=== PATIENT | male | born 1990 | race Caucasian/White ===

== ENCOUNTER 2016-05-10 23:26 | Emergency (ER) | payer SELFPAY ==
[~2016-05-10] VITALS: Wt 98.2 kg
[~2016-05-10 23:26] MED LIST: LORA1TAB PO
[2016-05-11] MEDS ORDERED: LORA-441 PO (01:40)
--- NOTE | 2016-05-11 01:46 | ERD ---
ER Documentation Chief Complaint Date/Time DATE: 05/11/16 TIME: 01:43 Chief Complaint panic attacks x3 wks, increasing in severity HPI This is a 25-year-old male presents to the ER for increased anxiety attacks. Patient has had anxiety attacks almost every day for the last month and a half. Patient states that he gets stressed out over anything and appears for his life. Patient states that he starts getting palpitations he has had decreased appetite and he gets nauseous, shortness of breath and facial flushing. Patient states he used to be an alcoholic and stopped drinking in January, he is now worried that this may have caused his problems. In October he was also going through some depression and he had to ecstasy pills, patient believes that this affected him as well. Patient denies any chest pain or shortness of breath at this time. He denies any palpitations at this time. She denies any fevers or chills. Patient states that today he was stuck in traffic and that he felt like he was going to pass out and since then he has been very emotional. She denies any drug use. He drinks alcohol about once a week. ROS 12 point review of systems was done, all negative except per HPI.. Medications Home Meds Active Scripts Lorazepam* (Ativan*) 0.5 Mg Tablet, 0.5 MG PO Q8H Y for ANXIETY, #10 TAB Prov:SAMPSON MIRZA 05/11/16 Lorazepam* (Lorazepam*) 1 Mg Tablet, 1 MG PO Q8, #10 TAB Prov:KRISTIN HUNTER DO 11/08/15 Allergies Allergies: Coded Allergies: No Known Allergy (Unverified , 11/08/15) PMhx/Soc Hx Alcohol Use: Yes Hx Substance Use: No Physical Exam Vitals Vital Signs Date Time Temp Pulse Resp B/P Pulse Ox O2 Delivery O2 Flow Rate FiO2 05/10/16 23:31 98.0 99 20 144/97 100 Physical Exam GENERAL: The patient is well developed and appropriate for usual state of health , in no apparent distress. HEENT: Atraumatic. Conjunctivae are pink. Pupils equal, round, and reactive to light. Extraocular muscles are grossly intact. Bilateral tympanic membranes are clear with no evidence of erythema, effusion or dulling of the light reflex. The oropharynx is clear with no erythema or exudates. NECK: C-spine is soft and supple. There is no cervical lymphadenopathy. CHEST: Clear to auscultation bilaterally. There are no rales, wheezes or rhonchi. HEART: Regular rate and rhythm. No murmurs, clicks, rubs or gallops. ABDOMEN: Soft, nontender and nondistended. Good bowel sounds. No rebound or guarding. No gross peritonitis. No gross organomegaly or masses. No Walker sign or McBurney point tenderness. No pulsatile masses. BACK: No midline or flank tenderness. EXTREMITIES: Equal pulses bilaterally. There is no peripheral clubbing, cyanosis or edema. No focal swelling or erythema. Full range of motion. Grossly neurovascularly intact. NEURO: Alert and oriented. Cranial nerves II through XII are intact. Motor strength in all 4 extremities with 5/5 strength. Sensation grossly intact. Normal speech and gait. SKIN: There is no apparent rash or petechia. The skin is warm and dry. Results 24 hrs Current Medications Medications (Trade) Dose Ordered Sig/Gisela Route PRN Reason Start Time Stop Time Status Last Admin Dose Admin Lorazepam (Ativan) 1 mg ONCE ONCE PO 05/11/16 02:00 05/11/16 02:01 Procedures/MDM Differential diagnosis includes but is not limited to; STEMI, dissection, pneumothorax, PE, esophageal rupture, tamponade, pneumonia, pericarditis, GERD, musculoskeletal, endocarditis, anxiety. Patient was extremely anxious in the exam room, he was teary-eyed. Patient however denied suicidal ideations. Patient requested blood work, I meg blood work for patient's reassurance. EKG and x-ray were also ordered. Patient care will be left for Ariane Mcclendon. This is likely anxiety. Patient for cardiac etiology is low. Patient's vital signs are stable. He is on any respiratory distress. If everything is normal patient will be able to go home with lorazepam. Departure Diagnosis: Primary Impression: Anxiety Condition: Stable Patient Instructions: Your Body's Response to Anxiety, Anxiety Reaction Additional Instructions: Call your primary care doctor TOMORROW for an appointment during the next 1-2 days.See the doctor sooner or return here if your condition worsens before your appointment time. SAMPSON MIRZA May 11, 2016 01:46
[2016-05-11] MEDS ORDERED: LORAZEPAM 1 MG TAB PO ONE (02:00)
[2016-05-11 02:26] LABS: ADD SCAN DIFF NO
[2016-05-11 02:28] LABS: BASOPHILS % 0.4 % (0.0-2.0); EOSINOPHILS # 0.2 10^3/ul (0.0-0.5); EOSINOPHILS % 2.7 % (0.0-7.0); HEMATOCRIT 47.2 % (42.0-52.0); HEMOGLOBIN 15.6 g/dl (14.0-18.0); LYMPHOCYTES # 2.3 10^3/ul (0.8-2.9); LYMPHOCYTES % 25.7 % (15.0-51.0); MEAN CORPUSCULAR HEMOGLOBIN 29.8 pg (29.0-33.0); MEAN CORPUSCULAR HGB CONC 33.1 g/dl (32.0-37.0); MEAN CORPUSCULAR VOLUME 90.1 fl (82.0-101.0); MONOCYTE # 0.7 10^3/ul (0.3-0.9); MONOCYTES % 7.8 % (0.0-11.0); NEUTROPHIL # 5.6 10^3/ul (1.6-7.5); PLATELET COUNT 263 10^3/UL (140-415); RED BLOOD COUNT 5.24 10^6/ul (4.70-6.10); RED CELL DISTRIBUTION WIDTH 12.4 % (11.5-14.5)
--- NOTE | 2016-05-11 03:02 | RADRPT ---
PROCEDURE: XR Chest. CLINICAL INDICATION: Dyspnea. TECHNIQUE: Single frontal view of the chest was obtained COMPARISON: None FINDINGS: The heart and mediastinum are within normal limits. The lungs are clear. There is no pleural effusion or pneumothorax. IMPRESSION: No acute disease. RPTAT: [facility] Physician Hemant Date Time Electronically viewed and signed by Danuta Ware Physician on 05/11/2016 03:02 RS/
[2016-05-11 03:17] LABS: ALBUMIN 4.4 g/dl (3.3-4.9); POTASSIUM 3.8 mmol/L (3.5-5.1)
[2016-05-11 03:19] LABS: CREATININE 0.9 mg/dl (0.61-1.24)
[2016-05-11 03:20] LABS: ALBUMIN/GLOBULIN RATIO 1.41; BILIRUBIN,INDIRECT 0.2 mg/dl (0-1.1); BILIRUBIN,TOTAL 0.2 mg/dl (0.2-1.3); CALCIUM 9.8 mg/dl (8.4-10.2); TOTAL PROTEIN 7.5 g/dl (6.1-8.1)
[2016-05-11 04:28] VITALS: BP 138/80; PULSE 79; RESP 18; TEMP 98.2
== END 2016-05-11 04:29 | disposition home or self-care (01) ==
LOC: FTE 23:26
DX: F41.9 Anxiety disorder, unspecified (principal); R00.2 Palpitations; J45.909 Unspecified asthma, uncomplicated; F17.210 Nicotine dependence, cigarettes, uncomplicated
CPT/HCPCS: 36415; 71010; 80053; 85025; 93005

== ENCOUNTER 2016-05-24 17:18 | Emergency (ER) | payer SELFPAY ==
[~2016-05-24] VITALS: Wt 100.0 kg
[~2016-05-24 17:18] MED LIST changes: +LORA-441 PO
--- NOTE | 2016-05-24 18:02 | ERD ---
ER Documentation Chief Complaint Date/Time DATE: 05/24/16 TIME: 17:54 Chief Complaint sore throat and bilat ear pain for a few days. no distress HPI This pleasant 26-year-old male patient comes in today reporting 7 day history of cough, sore throat, runny nose, congestion, left ear pain, and right-sided neck pain with swallowing. Patient reports low-grade fevers, decreased energy, and difficulty swallowing. Patient states it hurts his throat when he coughs, has been using [id number] cold and flu medications [place]klin, Tylenol and rest with little relief of symptoms. Patient reports he has an anxiety disorder and has been at this hospital last week for anxiety, states that being sick makes him feels anxious. Patient is alert, soft-spoken, articulate in no acute distress. ROS All systems reviewed and are negative except as per history of present illness. Medications Home Meds Active Scripts Clarithromycin* (Clarithromycin*) 500 Mg Tablet, 500 MG PO BID for 10 Days, #20 TAB Prov:EMILIO,YARI 05/24/16 [Clar] No Conflict Check Prov:EMILIO,YARI 05/24/16 Promethazine HCl/Codeine (Prometh-Codein 6.25-10 mg/5 ml) 5 Ml Syrup, 5 ML PO Q6 for 3 Days, #120 Prov:EMILIO,YARI 05/24/16 Lorazepam* (Ativan*) 0.5 Mg Tablet, 0.5 MG PO Q8H Y for ANXIETY, #10 TAB Prov:SAMPSON MIRZA 05/11/16 Lorazepam* (Lorazepam*) 1 Mg Tablet, 1 MG PO Q8, #10 TAB Prov:KRISTIN HUNTER DO 11/08/15 Discontinued Scripts Amoxicillin/Potassium Clav (Amox-Clav 875-125 mg Tablet) 875-125 mg Tab, 1 TAB PO BID for 10 Days, #20 TAB Prov:EMILIO,YARI 05/24/16 Allergies Allergies: Uncoded Allergies: PCN (Allergy, Mild, RASH , 05/24/16) PMhx/Soc History of Surgery: Yes (right ankle surgery) Anesthesia Reaction: No Hx Neurological Disorder: No Hx Respiratory Disorders: Yes (asthma) Hx Cardiac Disorders: No Hx Psychiatric Problems: No Hx Miscellaneous Medical Probl: No Hx Alcohol Use: Yes (once every other week) Hx Substance Use: No Hx Tobacco Use: Yes (2 cigarettes per day) Physical Exam Vitals Vital Signs Date Time Temp Pulse Resp B/P Pulse Ox O2 Delivery O2 Flow Rate FiO2 05/24/16 17:29 99.9 102 21 137/73 99 Physical Exam Const: No acute distress Head: Atraumatic Eyes: Normal Conjunctiva ENT: Tympanic membranes retracted, auditory canals are clear, nasal mucosa inflamed, terminates +3, mucous crusts noted, right maxillary tenderness, pressure behind eyes with leaning forward, Clarinex bright angry red, cobblestoning, uvula rises and falls with pronation, tonsils without exudate, Neck: Full range of motion..~ No meningismus. No cervical chain nodes Resp: Clear to auscultation bilaterally no rales wheezes or rhonchi Cardio: Abd: Soft, non tender, non distended. Normal bowel sounds, no hepatosplenomegaly Skin: No petechiae or rashes Back: Ext: Neur: Awake and alert Psych: Normal Mood and Affect Procedures/MDM This pleasant 26-year-old male patient presents to emergency department with 1 week of nasal congestion, sore throat, cough, fever, clogged ears, fatigue, and cough. Bacterial infection is suspected secondary to length of time of symptoms. Physical exam patient has maxillary tenderness, turbinates are inflamed with mucous and crust noted, pharynx is cobblestoned, bright angry red , tonsils without exudate. I feel patient is a candidate for out patient management of a maxillary sinus infection/pharyngitis, patient states that he is allergic to penicillin, he will be treated with clarithromycin 500 mg twice daily 10 days, promethazine with codeine for throat pain and congestion. 5 mL' s every 6 hours as needed and to follow-up with primary physician. I feel the patient is stable for discharge at this time. I have discussed results, examination findings, the treatment plan with the patient and family present prior to discharge. Indications for emergent reevaluation, side effects of medication were also discussed. All questions were answered. Patient verbalizes understanding and agrees with plan of care. Departure Condition: YARI Verduzco May 24, 2016 18:02
[2016-05-24] MEDS ORDERED: AMOX1TAB10 PO (18:03)
[2016-05-24] MEDS ORDERED: PROM5SYR2 PO (18:06)
[2016-05-24] MEDS ORDERED: [UNRECOGNIZED DRUG - OTHER] (18:13)
[2016-05-24] MEDS ORDERED: CLAR500T PO (18:13)
== END 2016-05-24 18:10 | disposition home or self-care (01) ==
LOC: E/R 17:18
DX: R05 Cough (principal); J02.9 Acute pharyngitis, unspecified; R09.81 Nasal congestion; R50.9 Fever, unspecified; H92.03 Otalgia, bilateral; J45.909 Unspecified asthma, uncomplicated; F17.210 Nicotine dependence, cigarettes, uncomplicated
CPT/HCPCS: 99284

== ENCOUNTER 2017-05-27 02:54 | Emergency (ER) | END 2017-05-27 06:10 | disposition home or self-care (01) ==